=== PATIENT | female | born 1960 | race Two or more races ===

== ENCOUNTER 2017-09-30 11:03 | Inpatient (IN) | payer SELFPAY ==
[2017-09-30 11:38] LABS: ADD MAN DIFF? NO
[2017-09-30 11:40] LABS: BASO % 1 % (0-3); EOS % 0 % (0-3); HEMATOCRIT 40.1 % (36.0-47.0); LYMPH # 1.7 x10^3/uL (1.0-4.8); LYMPH % 26 % (24-48); MEAN CORPUSCULAR HEMOGLOBIN 33 pg (25-35); MEAN CORPUSCULAR HGB CONC 35 g/dL (31-37); MEAN CORPUSCULAR VOLUME 93 fL (79-100); MONO # 0.3 x10^3/uL (0.0-1.1); MONO % 5 % (0-9); NEUT # 4.5 x10^3uL (1.8-7.7); NEUT % 68 % (31-73); PLATELET COUNT 272 x10^3/uL (140-400); RED CELL DISTRIBUTION WIDTH 12.3 % (11.5-14.5); WHITE BLOOD COUNT 6.6 x10^3/uL (4.0-11.0)
[2017-09-30 12:44] LABS: ALBUMIN 3.8 g/dL (3.4-5.0); ALK PHOS 91 U/L (46-116); ALT (SGPT) 28 U/L (14-59); ANION GAP 5 (6-14); AST (SGOT) 18 U/L (15-37); BLOOD UREA NITROGEN 13 mg/dL (7-20); CALCIUM 9.4 mg/dL (8.5-10.1); CARBON DIOXIDE 30 mmol/L (21-32); CHLORIDE 106 mmol/L (98-107); CREATININE 0.6 mg/dL (0.6-1.0); DIRECT BILIRUBIN 0.1 mg/dL (0.0-0.2); GFR 103.8; GLUCOSE 108 mg/dL (70-99); LIPASE 135 U/L (73-393); POTASSIUM 4.3 mmol/L (3.5-5.1); SODIUM 141 mmol/L (136-145); TOTAL BILIRUBIN 0.4 mg/dL (0.2-1.0); TOTAL PROTEIN 7.2 g/dL (6.4-8.2)
[2017-09-30 12:59] LABS: TROPONINI < 0.017 ng/mL (0.000-0.055)
[2017-09-30] MEDS: KETOROLAC 30 MG/ML INJ. IV (14:32)
[2017-09-30] MEDS ORDERED: MORPHINE SULFATE 4 MG/ML DISP.SYRIN. IV (14:45)
[2017-09-30] MEDS ORDERED: ONDANSETRON PF 4 MG/2 ML VIAL. IV (14:45)
[2017-09-30] MEDS: IV NORMAL SALINE 1000ML BAG 1,000 ML IV (16:44)
[2017-09-30 19:47] LABS: TROPONINI < 0.017 ng/mL (0.000-0.055)
[2017-09-30 21:46] LABS: TROPONINI < 0.017 ng/mL (0.000-0.055)
[2017-10-01] MEDS: IV NORMAL SALINE 1000ML BAG 1,000 ML IV ×2 (01:07→21:49)
[2017-10-01 05:35] LABS: ADD MAN DIFF? NO
[2017-10-01 05:44] LABS: BASO % 0 % (0-3); EOS # 0.1 x10^3/uL (0.0-0.7); EOS % 1 % (0-3); HEMATOCRIT 32.9 % (36.0-47.0); HEMOGLOBIN 11.4 g/dL (12.0-15.5); LYMPH # 2.8 x10^3/uL (1.0-4.8); LYMPH % 49 % (24-48); MEAN CORPUSCULAR HEMOGLOBIN 32 pg (25-35); MEAN CORPUSCULAR HGB CONC 35 g/dL (31-37); MEAN CORPUSCULAR VOLUME 93 fL (79-100); MONO # 0.4 x10^3/uL (0.0-1.1); MONO % 7 % (0-9); NEUT # 2.4 x10^3uL (1.8-7.7); NEUT % 42 % (31-73); PLATELET COUNT 198 x10^3/uL (140-400); RED BLOOD COUNT 3.54 x10^6/uL (3.50-5.40); RED CELL DISTRIBUTION WIDTH 12.1 % (11.5-14.5); WHITE BLOOD COUNT 5.6 x10^3/uL (4.0-11.0)
[2017-10-01 06:15] LABS: ALBUMIN/GLOBULIN RATIO 1.1 (1.0-1.7); ALK PHOS 70 U/L (46-116); ALT (SGPT) 23 U/L (14-59); ANION GAP 5 (6-14); AST (SGOT) 17 U/L (15-37); BLOOD UREA NITROGEN 14 mg/dL (7-20); BUN/CREATININE RATIO 23 (6-20); CALCIUM 8.4 mg/dL (8.5-10.1); CARBON DIOXIDE 29 mmol/L (21-32); CHLORIDE 109 mmol/L (98-107); CREATININE 0.6 mg/dL (0.6-1.0); GFR 103.8; GLUCOSE 97 mg/dL (70-99); POTASSIUM 3.6 mmol/L (3.5-5.1); SODIUM 143 mmol/L (136-145); TOTAL BILIRUBIN 0.4 mg/dL (0.2-1.0); TOTAL PROTEIN 5.8 g/dL (6.4-8.2)
[2017-10-01] MEDS: ASPIRIN ENTERIC COATED 81 MG TABLET.DR. PO (11:25)
[2017-10-01] MEDS: IBUPROFEN 400 MG TABLET. PO (11:25)
[2017-10-01] MEDS: METOPROLOL TART IMMED RELEASE 25 MG TABLET. PO ×2 (11:26→21:49)
[2017-10-01 11:43] LABS: CHOLESTEROL 135 mg/dL (0-200); HDLC 61 mg/dL (40-60); LDLC 67 mg/dL (0-100); NON-HDL CHOLESTEROL 74 mg/dL (0-129); TRIGLYCERIDES 35 mg/dL (0-150); VLDLC 7 mg/dL (0-40)
[2017-10-01 11:43] LABS: MAGNESIUM 1.9 mg/dL (1.8-2.4)
[2017-10-01 11:44] LABS: CHOLESTEROL/HDL RATIO 2.2
[2017-10-01 11:53] LABS: THYROID STIM HORMONE (TSH) 1.024 uIU/mL (0.358-3.74)
[2017-10-01] MEDS ORDERED: ALPRAZolam 0.25 MG TABLET PO (14:30)
[2017-10-01] MEDS: MAGNESIUM OXIDE 400 MG TABLET PO ×2 (15:56→21:00)
[2017-10-01] MEDS: VENLAFAXINE 75 MG TABLET. PO (15:56)
[2017-10-02] MEDS: ASPIRIN ENTERIC COATED 81 MG TABLET.DR. PO (08:08)
[2017-10-02] MEDS: MAGNESIUM OXIDE 400 MG TABLET PO (08:09)
[2017-10-02] MEDS: VENLAFAXINE 75 MG TABLET. PO (08:09)
[2017-10-02] MEDS: METOPROLOL TART IMMED RELEASE 25 MG TABLET. PO (08:09)
== END 2017-10-02 15:30 | disposition home or self-care (01) | DRG 305 ==
LOC: ER 11:03 → 5 NORTH 14:38
DX: I16.0 Hypertensive urgency (principal); E83.42 Hypomagnesemia; F41.9 Anxiety disorder, unspecified; I10 Essential (primary) hypertension; I49.3 Ventricular premature depolarization; N95.1 Menopausal and female climacteric states; Z82.49 Family history of ischemic heart disease and other diseases of the circulatory system; Z90.49 Acquired absence of other specified parts of digestive tract
CPT/HCPCS: 36415; 71045; 76536; 80048; 80053; 80061; 80076; 83690; 83735; 84443; 84484; 85025; 93005; 93306; 96374; 99285; 99285-25; J1885; J7030